=== PATIENT | male | born 1980 | race Hispanic/Latino ===

== ENCOUNTER 2017-04-18 21:20 | Emergency (ER) | payer MEDICARE ==
[2017-04-18] MEDS ORDERED: LEVOFLOXACIN 500 MG TABLET ONE (22:38)
[2017-04-18] MEDS ORDERED: TETANUS/DIPHTHERIA TOXOID [ADULT] 0.5 ML VIAL IM ONE (22:39)
== END 2017-04-18 23:38 | disposition home or self-care (01) ==
LOC: EDH 21:20
DX: S91.144A Puncture wound with foreign body of right lesser toe(s) without damage to nail, initial encounter (principal); Z98.890 Other specified postprocedural states; X58.XXXA Exposure to other specified factors, initial encounter; Y93.89 Activity, other specified; Y92.89 Other specified places as the place of occurrence of the external cause; Y99.8 Other external cause status
CPT/HCPCS: 10120; 20520; 73660; 90471; 90714